=== PATIENT | male | born 1985 | race Caucasian/White ===

== ENCOUNTER 2017-10-19 20:35 | Emergency (ER) | payer SELFPAY ==
[~2017-10-19] VITALS: Ht 182.9 cm; Wt 127.0 kg
[~2017-10-19 20:35] MED LIST: ALBU90OI INH; ALBU90OI6 INH; ALBU90OI61 INH; Bactrim Ds Tab1 EACH PO; CEPH500 PO; Percocet 5-3251 EACH PO; SULTRIDS PO; Ultram50 MG PO
[2017-10-19] MEDS ORDERED: Prednisone20 MG PO ×2 (22:36→22:53)
[2018-09-24] MEDS ORDERED: ALBU90OI61 INH (16:38)
[2018-09-24] MEDS ORDERED: QVAR REDIHALE10.6 G1 INH (16:38)
[2018-09-24] MEDS ORDERED: Prednisone20 MG PO (16:38)
== END 2017-10-19 22:56 | disposition home or self-care (01) ==
LOC: ER 20:35
DX: J45.901 Unspecified asthma with (acute) exacerbation (principal); Z88.0 Allergy status to penicillin
CPT/HCPCS: 71046; 94644; 94760; 96374; 99283; J2930

== ENCOUNTER 2017-11-13 19:52 | Emergency (ER) | payer SELFPAY ==
[~2017-11-13] VITALS: Ht 180.3 cm; Wt 117.9 kg
[~2017-11-13 19:52] MED LIST changes: +Prednisone20 MG PO
[2017-11-13] MEDS ORDERED: (None)20 M1 PO (22:36)
[2018-09-24] MEDS ORDERED: QVAR REDIHALE10.6 G1 INH (16:38)
[2018-09-24] MEDS ORDERED: Prednisone20 MG PO (16:38)
[2018-09-24] MEDS ORDERED: ALBU90OI61 INH (16:38)
== END 2017-11-13 22:44 | disposition home or self-care (01) ==
LOC: ER 19:52
DX: J45.901 Unspecified asthma with (acute) exacerbation (principal); F17.200 Nicotine dependence, unspecified, uncomplicated; Z88.0 Allergy status to penicillin
CPT/HCPCS: 36415; 71046; 94640; 94644; 96374; 99283; J2930

== ENCOUNTER 2017-11-20 21:48 | Emergency (ER) | payer SELFPAY ==
[~2017-11-20] VITALS: Ht 180.3 cm; Wt 127.0 kg
[~2017-11-20 21:48] MED LIST changes: +(None)20 M1 PO
[2017-11-20] MEDS ORDERED: FLUT1DIS2 INH (23:07)
[2017-11-20] MEDS ORDERED: Prednisone50 MG PO (23:07)
[2018-09-24] MEDS ORDERED: QVAR REDIHALE10.6 G1 INH (16:38)
[2018-09-24] MEDS ORDERED: ALBU90OI61 INH (16:38)
[2018-09-24] MEDS ORDERED: Prednisone20 MG PO (16:38)
== END 2017-11-20 23:19 | disposition home or self-care (01) ==
LOC: ER 21:48
DX: J45.901 Unspecified asthma with (acute) exacerbation (principal); Z88.0 Allergy status to penicillin; Z87.891 Personal history of nicotine dependence
CPT/HCPCS: 94640; 99283; J1100

== ENCOUNTER 2018-10-22 23:57 | Emergency (ER) | payer BC ==
[~2018-10-22] VITALS: Ht 185.4 cm; Wt 129.3 kg
[~2018-10-22 23:57] MED LIST changes: +FLUT1DIS2 INH; +Prednisone50 MG PO; +QVAR REDIHALE10.6 G1 INH
[2018-10-23] MEDS ORDERED: QVAR REDIHALE10.6 G1 INH (00:06)
[2018-10-23] MEDS ORDERED: Prednisone20 MG PO (00:42)
[2018-10-23] MEDS ORDERED: ALBU90OI61 INH (00:42)
== END 2018-10-23 00:45 | disposition home or self-care (01) ==
LOC: ER 23:57
DX: J45.901 Unspecified asthma with (acute) exacerbation (principal); Z87.891 Personal history of nicotine dependence
CPT/HCPCS: 94640; 96374; 99284-25; J2930

== ENCOUNTER 2019-03-06 20:48 | Emergency (ER) | payer BC ==
[~2019-03-06] VITALS: Ht 185.4 cm; Wt 127.0 kg
[2019-03-06] MEDS ORDERED: Prednisone20 MG PO (23:55)
== END 2019-03-07 00:40 | disposition home or self-care (01) ==
LOC: ER 20:48
DX: J45.901 Unspecified asthma with (acute) exacerbation (principal); Z88.0 Allergy status to penicillin; J45.909 Unspecified asthma, uncomplicated
CPT/HCPCS: 71046; 94640; 94644; 96374; 99285-25; J2930

== ENCOUNTER 2019-11-17 20:50 | Emergency (ER) | payer BC ==
[~2019-11-17] VITALS: Ht 185.4 cm; Wt 127.0 kg
[2019-11-17] MEDS ORDERED: Prednisone20 MG PO (22:19)
== END 2019-11-17 22:38 | disposition home or self-care (01) ==
LOC: ER 20:50
DX: J45.901 Unspecified asthma with (acute) exacerbation (principal); Z88.0 Allergy status to penicillin; Z79.51 Long term (current) use of inhaled steroids
CPT/HCPCS: 36415; 94644; 96361; 96374; 99283-25; J2930; J7030

== ENCOUNTER → 2020-07-05 | Outpatient (CLI) | payer BC ==
[~2020-07-05] MED LIST changes: +METFORMIN ER1000 M2 PO
[2020-07-05 16:50] LABS: Microalb/Creat Ratio UR, Rand 36.08 mg/g (0.000-30.000); Microalbumin, Random Urine 45.1 mg/L (0.000-20.000)
== END ==
LOC: LAB SHORT 13:40 → LAB 13:40
PROVIDERS: Nurse Practitioner Family
DX: E11.65 Type 2 diabetes mellitus with hyperglycemia (principal)
CPT/HCPCS: 82043; 82570

== ENCOUNTER 2020-10-06 03:14 | Emergency (ER) | payer BC ==
[~2020-10-06] VITALS: Ht 185.4 cm; Wt 113.4 kg
[2020-10-06] MEDS ORDERED: MONT10T PO (03:23)
[2020-10-06] MEDS ORDERED: Prinivil10 MG PO (03:23)
== END 2020-10-06 05:12 | disposition home or self-care (01) ==
LOC: ER 03:14
DX: J45.901 Unspecified asthma with (acute) exacerbation (principal); Z79.899 Other long term (current) drug therapy; Z88.0 Allergy status to penicillin; Z91.09 Other allergy status, other than to drugs and biological substances; Z79.84 Long term (current) use of oral hypoglycemic drugs; Z87.891 Personal history of nicotine dependence
CPT/HCPCS: 99283-25; J1100

== ENCOUNTER 2021-08-03 13:33 | Emergency (ER) | payer BC ==
[~2021-08-03] VITALS: Ht 185.4 cm; Wt 127.0 kg
[~2021-08-03 13:33] MED LIST changes: +MONT10T PO; +PRED20 PO; +Prinivil10 MG PO; +XIGDUO PO
[2021-08-03] MEDS ORDERED: ALBU90OI INH (15:54)
== END 2021-08-03 15:56 | disposition home or self-care (01) ==
LOC: ER 13:33
DX: J45.901 Unspecified asthma with (acute) exacerbation (principal); Z88.0 Allergy status to penicillin; Z91.048 Other nonmedicinal substance allergy status; Z87.891 Personal history of nicotine dependence
CPT/HCPCS: 94640; 94644; 99285-25; J7512

== ENCOUNTER 2021-09-20 21:21 | Emergency (ER) | payer BC ==
[~2021-09-20] VITALS: Ht 185.4 cm; Wt 127.0 kg
[2021-09-20] MEDS ORDERED: PRED20 PO (21:55)
== END 2021-09-20 22:25 | disposition home or self-care (01) ==
LOC: ER 21:21
DX: J45.901 Unspecified asthma with (acute) exacerbation (principal); G47.30 Sleep apnea, unspecified; Z87.891 Personal history of nicotine dependence
CPT/HCPCS: 94640; 96372; 99284-25; A9270; J2930

== ENCOUNTER → 2022-03-05 | Outpatient (CLI) | payer OTHER | END | disposition home or self-care (01) | LOC: LAB 17:34 → LAB SHORT 17:34 | DX: L03.031 Cellulitis of right toe (principal) | CPT/HCPCS: 87070; 87075; 87077; 87147; 87186; 87205 ==

== ENCOUNTER → 2024-01-14 | Outpatient (CLI) | payer OTHER ==
[2024-01-14 19:49] LABS: BASOPHILS ABSOLUTE AUTO 0.07 K/mm3 (0.00-0.23); BASOPHILS PERCENT AUTO 1 % (0-2); EOSINOPHILS ABSOLUTE AUTO 0.33 K/mm3 (0.00-0.68); EOSINOPHILS PERCENT AUTO 3 % (0-6); Hematocrit 45.7 % (37.0-53.0); Hemoglobin 15.7 g/dL (13.5-17.5); IMMATURE GRAN ABSOLUTE AUTO 0.06 K/mm3 (0.00-0.10); IMMATURE GRAN PERCENT AUTO 1 % (0-1); LYMPHOCYTES ABSOLUTE AUTO 2.86 K/mm3 (0.84-5.20); LYMPHOCYTES PERCENT AUTO 29 % (21-46); MONOCYTES ABSOLUTE AUTO 0.53 K/mm3 (0.16-1.47); MONOCYTES PERCENT AUTO 5 % (4-13); Mean Corpuscular HGB 29.8 pg (26.0-34.0); Mean Corpuscular HGB Conc 34.4 g/dL (31.5-36.5); Mean Corpuscular Volume 87 fL (80-100); Mean Platelet Volume 9.6 fL (9.1-12.4); NEUTROPHILS ABSOLUTE AUTO 5.96 K/mm3 (1.96-9.15); NEUTROPHILS PERCENT AUTO 61 % (41-73); Platelet Count 272 K/mm3 (150-400); RDW Coefficient Variation 12.9 % (11.7-14.2); RDW Standard Deviation 40.5 fL (35.1-46.3); Red Blood Cell Count 5.26 M/mm3 (4.30-5.90); White Blood Cell Count 9.81 K/mm3 (4.00-11.30)
[2024-01-14 20:32] LABS: Alanine Aminotransfer (ALT/SGP 59 U/L (12-78); Albumin, Blood 4.4 g/dL (3.4-5.0); Albumin/Globulin Ratio 1.3 (0.8-1.8); Alk Phos 40 U/L (50-136); Anion Gap 11 mmol/L (3-11); Aspartate Aminotrans (AST/SGOT 25 U/L (12-37); Bilirubin, Total 0.5 mg/dL (0.1-1.0); Blood Urea Nitrogen 17 mg/dL (8-24); CHOL/HDL RATIO 3.9; CO2, Blood 23 mmol/L (21-32); Calcium, Blood 9.2 mg/dL (8.5-10.1); Chloride, Blood 109 mmol/L (98-108); Cholesterol 189 mg/dL (50-200); Creatinine, Blood 0.71 mg/dL (0.60-1.20); Globulin, Blood 3.5 g/dL (2.2-4.0); Glomerular Filtration Rate 120 (60-); Glucose, Blood 121 mg/dL (70-99); HDL Cholesterol 49 mg/dL (>39); LDL/HDL RATIO 2.4; Low Density Lipoprotein Chol 117 mg/dL (0-110); Sodium, Blood 139 mmol/L (136-145); Total Protein, Blood 7.9 g/dL (6.4-8.2); Triglycerides 117 mg/dL (30-140); Very Low Density Lipoprot Chol 23 mg/dL (6-28)
== END ==
LOC: LAB SHORT 19:08 → LAB 19:08
PROVIDERS: Family Medicine
DX: Z79.899 Other long term (current) drug therapy (principal)
CPT/HCPCS: 80053; 80061; 82306; 83036; 84443; 85025

== ENCOUNTER → 2024-08-11 | Outpatient (CLI) | payer OTHER | LOC: LAB 15:51 → LAB SHORT 15:51 | DX: E11.9 Type 2 diabetes mellitus without complications (principal) | CPT/HCPCS: 83036 ==

== ENCOUNTER → 2024-11-10 | Outpatient (CLI) | payer OTHER ==
[2024-11-10 16:10] LABS: BASOPHILS ABSOLUTE AUTO 0.06 K/mm3 (0.00-0.23); BASOPHILS PERCENT AUTO 1 % (0-2); EOSINOPHILS PERCENT AUTO 3 % (0-6); Hematocrit 46.5 % (37.0-53.0); Hemoglobin 16.1 g/dL (13.5-17.5); IMMATURE GRAN ABSOLUTE AUTO 0.07 K/mm3 (0.00-0.10); IMMATURE GRAN PERCENT AUTO 1 % (0-1); LYMPHOCYTES ABSOLUTE AUTO 2.46 K/mm3 (0.84-5.20); LYMPHOCYTES PERCENT AUTO 28 % (21-46); MONOCYTES ABSOLUTE AUTO 0.63 K/mm3 (0.16-1.47); MONOCYTES PERCENT AUTO 7 % (4-13); Mean Corpuscular HGB 30.4 pg (26.0-34.0); Mean Corpuscular HGB Conc 34.6 g/dL (31.5-36.5); Mean Corpuscular Volume 88 fL (80-100); NEUTROPHILS ABSOLUTE AUTO 5.21 K/mm3 (1.96-9.15); NEUTROPHILS PERCENT AUTO 60 % (41-73); Platelet Count 277 K/mm3 (150-400); RDW Coefficient Variation 12.5 % (11.7-14.2); RDW Standard Deviation 39.9 fL (35.1-46.3); White Blood Cell Count 8.73 K/mm3 (4.00-11.30)
[2024-11-10 18:23] LABS: Alanine Aminotransfer (ALT/SGP 68 U/L (12-78); Albumin, Blood 4.1 g/dL (3.4-5.0); Albumin/Globulin Ratio 1.2 (0.8-1.8); Alk Phos 43 U/L (50-136); Anion Gap 14 mmol/L (3-11); Aspartate Aminotrans (AST/SGOT 27 U/L (12-37); Bilirubin, Total 0.4 mg/dL (0.1-1.0); Blood Urea Nitrogen 17 mg/dL (8-24); Bun/Creatinine Ratio 20.6 (12.0-20.0); CHOL/HDL RATIO 4.8; CO2, Blood 23 mmol/L (21-32); Calcium, Blood 8.6 mg/dL (8.5-10.1); Chloride, Blood 105 mmol/L (98-108); Cholesterol 218 mg/dL (50-200); Creatinine, Blood 0.82 mg/dL (0.60-1.20); Globulin, Blood 3.5 g/dL (2.2-4.0); Glomerular Filtration Rate 115 (60-); Glucose, Blood 159 mg/dL (70-99); HDL Cholesterol 45 mg/dL (>39); LDL/HDL RATIO 2.5; Low Density Lipoprotein Chol 111 mg/dL (0-110); Sodium, Blood 138 mmol/L (136-145); Total Protein, Blood 7.6 g/dL (6.4-8.2); Triglycerides 309 mg/dL (30-140); Very Low Density Lipoprot Chol 61 mg/dL (6-28)
== END | disposition home or self-care (01) ==
LOC: LAB SHORT 14:45
PROVIDERS: Family Medicine
DX: E11.9 Type 2 diabetes mellitus without complications (principal); I10 Essential (primary) hypertension
CPT/HCPCS: 80053; 80061; 83036; 85025